=== PATIENT | male | born 1960 | race Asian ===

== ENCOUNTER 2016-08-10 22:32 | Inpatient (IN) | payer MEDICARE, OTHER ==
[~2016-08-10] VITALS: Ht 180.3 cm; Wt 110.0 kg
[2016-08-10] MEDS ORDERED: METF500T4 PO (22:46)
[2016-08-10] MEDS ORDERED: ADV250 IH (22:46)
[2016-08-10] MEDS ORDERED: SIMV-261 PO (22:46)
[2016-08-10] MEDS ORDERED: ENAL10 PO (22:46)
[2016-08-10] MEDS ORDERED: GLIP5TAB11 PO (22:46)
[2016-08-10] MEDS ORDERED: PROZ10 PO (22:46)
[2016-08-10] MEDS ORDERED: LAMO25 PO (22:46)
[2016-08-10 22:58] LABS: BASOPHILS # (AUTO) 0.06 K/uL (0.00-0.20); BASOPHILS % (AUTO) 0.7 % (0.0-2.0); EOSINOPHILS # (AUTO) 0.03 K/uL (0.00-0.70); EOSINOPHILS % (AUTO) 0.42 % (1.0-6.0); HEMATOCRIT 42.3 % (41-53); HEMOGLOBIN 13.8 g/dL (13.5-17.5); LYMPHOCYTES # (AUTO) 1.8 K/uL (1.0-4.8); LYMPHOCYTES % (AUTO) 21.4 % (22.0-44.0); MEAN CORPUSCULAR HEMOGLOBIN 28.8 pg (26.0-34.0); MEAN CORPUSCULAR HGB CONC 32.7 G/dL (31.0-37.0); MEAN CORPUSCULAR VOLUME 88 fL (80-100); MONOCYTES # (AUTO) 0.8 K/uL (0.1-1.0); MONOCYTES % (AUTO) 9.4 % (2.0-9.0); NEUTROPHILS # (AUTO) 5.6 K/uL (1.8-7.7); NEUTROPHILS % (AUTO) 68.1 % (40.0-70.0); PLATELET COUNT (AUTO) 178 K/uL (150-450); RED CELL DISTRIBUTION WIDTH 13.7 % (11.5-14.5); WHITE BLOOD COUNT (AUTO) 8.3 K/uL (4.5-11.0)
[2016-08-10] MEDS ORDERED: ALBUTEROL SULFATE 5 MG/ML 20 ML NEB SOLN [BULK] NEB ONE (23:00)
[2016-08-10] MEDS ORDERED: MethylPREDNISolone SOD SUCC 125 MG/2 ML VIAL IVP ONE (23:00)
[2016-08-10] MEDS ORDERED: ALBUTEROL SULFATE 2.5 MG/0.5 ML NEB SOLUTION NEB ONE (23:00)
[2016-08-10] MEDS ORDERED: IPRATROPIUM BROMIDE 0.5 MG/2.5 ML NEB SOLUTION NEB ONE ×2 (23:00)
[2016-08-10] MEDS ORDERED: ACETAMINOPHEN 500 MG TABLET PO ONE (23:00)
[2016-08-10] MEDS ORDERED: 0.9% SODIUM CHLORIDE 5 ML NEB SOLUTION NEB ONE (23:01)
[2016-08-10] MEDS: OXYGEN THERAPY IH SCH (23:08)
[2016-08-10 23:21] LABS: ANION GAP 8 mmol/L (8-16); CALCIUM, TOTAL 8.5 mg/dL (8.8-10.5); CARBON DIOXIDE 31 mmol/L (22-29); CHLORIDE 98 mmol/L (98-107); CREATININE 0.94 mg/dL (0.60-1.30); GLOMERULAR FILTR. RATE CALC > 60 mL/min (>60); POTASSIUM 3.6 mmol/L (3.5-5.1); SODIUM SERUM 137 mmol/L (136-145); UREA NITROGEN, BLOOD 7 mg/dL (7-18)
[2016-08-10 23:28] LABS: B-TYPE NATRIURETIC PEPTIDE 33 pg/mL (0-100)
[2016-08-10 23:35] LABS: ALANINE AMINOTRANSFERASE 22 U/L (12-78); ALBUMIN 3.5 g/dL (3.4-5.0); ASPARTATE AMINOTRANSFERASE 14 U/L (15-37); BILIRUBIN,TOTAL 0.2 mg/dL (0.1-1.0); CREATINE KINASE MB 0.8 ng/mL (0-5); CREATINE KINASE, TOTAL 206 U/L (39-308); TOTAL PROTEIN, SERUM 6.9 g/dL (6.4-8.2)
[2016-08-10 23:44] LABS: INFLUENZA TYPE B NEGATIVE FOR TYPE B (NEGATIVE)
[2016-08-10] MEDS ORDERED: ONDANSETRON HCL 4 MG/2 ML VIAL IVP PRN (23:45)
[2016-08-10] MEDS ORDERED: ACETAMINOPHEN 325 MG TABLET PO PRN (23:45)
[2016-08-10] MEDS ORDERED: 0.9% SODIUM CHLORIDE 10 ML SYRINGE IVP PRN (23:45)
[2016-08-11] MEDS ORDERED: VANCOMYCIN HCL 1 GM/D5% WATER 200 ML IV ONE
[2016-08-11] MEDS ORDERED: OSELTAMIVIR PHOSPHATE 75 MG CAPSULE PO ONE
[2016-08-11 00:52] VITALS: BP 147/79
[2016-08-11] MEDS ORDERED: PNEUMOCOCCAL VACCINE POLYVALENT 0.5 ML VIAL [PPSV23] IM ONE (01:30)
[2016-08-11] MEDS: ALBUTEROL SULFATE 2.5 MG/0.5 ML NEB SOLUTION NEB SCH ×3 (02:33→11:28)
[2016-08-11] MEDS: IPRATROPIUM BROMIDE 0.5 MG/2.5 ML NEB SOLUTION NEB SCH ×3 (02:33→11:28)
[2016-08-11 05:24] VITALS: BP 114/62
[2016-08-11] MEDS ORDERED: MethylPREDNISolone SOD SUCC 125 MG/2 ML VIAL IVP ONE ×2 (06:00)
[2016-08-11 07:10] VITALS: BP_SYST 122; BP_SYST 139; BP_DIAS 58; BP_DIAS 83
[2016-08-11] MEDS: OXYGEN THERAPY IH SCH ×2 (08:00→20:17)
[2016-08-11 11:02] VITALS: BP 132/90
[2016-08-11 12:13] LABS: ADD UA MICROSCOPIC YES; APPEARANCE,URINE CLOUDY (CLEAR); GLUCOSE, URINE (UA) NEGATIVE (NEGATIVE); KETONES,URINE NEGATIVE (NEGATIVE); LEUKOCYTE ESTERASE ,URINE NEGATIVE (NEGATIVE); OCCULT BLOOD,URINE TRACE (NEGATIVE); PH,URINE 5.5 (5.0-8.0); PROTEIN,URINE NEGATIVE (NEGATIVE)
[2016-08-11 12:21] LABS: RBC,URINE 0-2 /HPF (0-2); WBC,URINE None Seen /HPF (0-5)
[2016-08-11 12:22] LABS: SQUAMOUS EPITHELIAL CELL,UR Few /LPF (None Seen)
[2016-08-11 15:15] VITALS: BP 131/82
[2016-08-11] MEDS ORDERED: DEXTROSE 50%-WATER 25 GM/50 ML SYRINGE IVP PRN (16:00)
[2016-08-11 17:41] LABS: GLUCOSE COMMENT 1 Received Meds; GLUCOSE,POINT OF CARE 151 MG/DL (70-110)
[2016-08-11] MEDS: MetFORMIN HCL 500 MG TABLET PO SCH (18:18)
[2016-08-11 19:54] VITALS: BP 144/84
[2016-08-11] MEDS: LamoTRIgine 25 MG TABLET PO SCH (20:17)
[2016-08-11] MEDS: GlipiZIDE 5 MG TABLET PO SCH (20:19)
[2016-08-11] MEDS ORDERED: SIMVASTATIN 40 MG TABLET PO SCH (21:00)
[2016-08-12 00:04] VITALS: BP 147/88
[2016-08-12 02:01] LABS: GLUCOSE,POINT OF CARE 152 MG/DL (70-110)
[2016-08-12 04:54] VITALS: BP 138/81
[2016-08-12 05:16] LABS: GLUCOSE,POINT OF CARE 107 MG/DL (70-110)
[2016-08-12 08:50] VITALS: BP 132/86
[2016-08-12] MEDS ORDERED: ENALAPRIL MALEATE 10 MG TABLET PO SCH (09:00)
[2016-08-12] MEDS ORDERED: FLUoxetine HCL 10 MG CAPSULE PO SCH (09:00)
[2016-08-12] MEDS: GlipiZIDE 5 MG TABLET PO SCH (09:04)
[2016-08-12] MEDS: OXYGEN THERAPY IH SCH (09:04)
[2016-08-12] MEDS: LamoTRIgine 25 MG TABLET PO SCH (09:04)
[2016-08-12] MEDS: MetFORMIN HCL 500 MG TABLET PO SCH ×2 (09:04→17:36)
[2016-08-12 11:00] VITALS: BP 159/87
[2016-08-12] MEDS: INSULIN ASPART 100 UNITS/ML SQ PRN ×2 (12:17→17:36)
[2016-08-12 13:36] LABS: GLUCOSE,POINT OF CARE 115 MG/DL (70-110)
[2016-08-12 13:36] LABS: GLUCOSE,POINT OF CARE 62 MG/DL (70-110)
[2016-08-12 13:36] LABS: GLUCOSE,POINT OF CARE 73 MG/DL (70-110)
[2016-08-12 13:36] LABS: GLUCOSE COMMENT 1 Juice/Food/D50 Given; GLUCOSE,POINT OF CARE 52 MG/DL (70-110)
[2016-08-12 15:34] VITALS: BP 141/75
[2016-08-12 16:02] LABS: BASOPHILS % (AUTO) 0.1 % (0.0-2.0); EOSINOPHILS % (AUTO) 1.3 % (1.0-6.0); HEMATOCRIT 42.3 % (41-53); HEMOGLOBIN 13.7 g/dL (13.5-17.5); LYMPHOCYTES # (AUTO) 1.5 K/uL (1.0-4.8); LYMPHOCYTES % (AUTO) 15.3 % (22.0-44.0); MEAN CORPUSCULAR HEMOGLOBIN 28.7 pg (26.0-34.0); MEAN CORPUSCULAR HGB CONC 32.4 G/dL (31.0-37.0); MEAN CORPUSCULAR VOLUME 88 fL (80-100); MONOCYTES # (AUTO) 1.2 K/uL (0.1-1.0); MONOCYTES % (AUTO) 11.6 % (2.0-9.0); NEUTROPHILS # (AUTO) 7.1 K/uL (1.8-7.7); NEUTROPHILS % (AUTO) 71.7 % (40.0-70.0); PLATELET COUNT (AUTO) 217 K/uL (150-450); RED BLOOD CELL COUNT(AUTO) 4.78 MIL/uL (4.50-5.90); RED CELL DISTRIBUTION WIDTH 14.1 % (11.5-14.5); WHITE BLOOD COUNT (AUTO) 9.9 K/uL (4.5-11.0)
[2016-08-12 16:11] LABS: ANION GAP 6 mmol/L (8-16); CALCIUM, TOTAL 9.2 mg/dL (8.8-10.5); CARBON DIOXIDE 31 mmol/L (22-29); CHLORIDE 101 mmol/L (98-107); CREATININE 0.84 mg/dL (0.60-1.30); GLOMERULAR FILTR. RATE CALC > 60 mL/min (>60); POTASSIUM 4.6 mmol/L (3.5-5.1); SODIUM SERUM 138 mmol/L (136-145); UREA NITROGEN, BLOOD 19 mg/dL (7-18)
[2016-08-12 16:17] LABS: ALANINE AMINOTRANSFERASE 24 U/L (12-78); ALBUMIN 3.1 g/dL (3.4-5.0); ASPARTATE AMINOTRANSFERASE 18 U/L (15-37); BILIRUBIN,TOTAL 0.2 mg/dL (0.1-1.0); TOTAL PROTEIN, SERUM 6.8 g/dL (6.4-8.2)
[2016-08-12] MEDS ORDERED: OSEL75 PO (17:01)
[2016-08-12] MEDS ORDERED: GlipiZIDE 5 MG TABLET PO SCH (17:30)
[2016-08-12 20:11] LABS: GLUCOSE,POINT OF CARE 89 MG/DL (70-110)
[2016-08-13] MEDS ORDERED: HEPARIN SODIUM,PORCINE 5,000 UNITS/ML VIAL SQ SCH
[2016-08-13] MEDS ORDERED: PANTOPRAZOLE SODIUM 40 MG DR TABLET PO SCH (09:00)
== END 2016-08-12 18:21 | disposition home or self-care (01) | DRG 194 ==
LOC: EMS 22:34 → 6N 23:45
PROVIDERS: ADMIT Hospitalist; ATTEND Hospitalist
DX: J10.1 Influenza due to other identified influenza virus with other respiratory manifestations (principal); E44.0 Moderate protein-calorie malnutrition; E11.9 Type 2 diabetes mellitus without complications; F31.9 Bipolar disorder, unspecified; I10 Essential (primary) hypertension; E78.00 Pure hypercholesterolemia, unspecified; J44.9 Chronic obstructive pulmonary disease, unspecified; F12.90 Cannabis use, unspecified, uncomplicated; F17.210 Nicotine dependence, cigarettes, uncomplicated; Z79.899 Other long term (current) drug therapy; Z79.51 Long term (current) use of inhaled steroids
CPT/HCPCS: 80307; 82962; 83605; 87040; 87804; 93005; 94640; 94644; 96365; 96375; 99285; G0480; J2930; J3370